=== PATIENT | female | born 1935 | race African-American/Black ===

== ENCOUNTER 2020-07-02 18:01 | Emergency (ER) | payer BC, MEDICARE ==
[~2020-07-02] VITALS: Ht 167.6 cm; Wt 68.0 kg
[2020-07-02] MEDS ORDERED: ONDANSETRON HCL 4MG/2ML INJ IV ONE ×2 (19:00→23:00)
[2020-07-02] MEDS ORDERED: LABETALOL 5MG/ML SYR 20 MG/4 ML SYRINGE IV ONE (19:45)
[2020-07-02 20:24] LABS: CLARITY URINE CLEAR (CLEAR); COLOR URINE YELLOW (YELLOW); KETONES URINE NEGATIVE (NEGATIVE); LEUKOCYTE ESTERASE URINE TRACE (NEGATIVE); NITRITE URINE NEGATIVE (NEGATIVE); OCCULT BLOOD URINE NEGATIVE (NEGATIVE); PH URINE 7.5 (4.5-8.0); PROTEIN URINE NEGATIVE (NEGATIVE); UROBILINOGEN URINE 0.2 E.U./dL (0.2-1.0)
[2020-07-02 20:32] LABS: HEMATOCRIT. 35.7 % (36.0-48.0); MEAN CORPUSCULAR HEMOGLOBIN 30.8 pg (28.0-32.0); MEAN CORPUSCULAR VOLUME 91.5 fL (81.0-99.0); MEAN PLATELET VOLUME 7.8 fl (7.4-10.4); PLATELET 286 x1000/uL (130-400); RED CELL DISTRIBUTION WIDTH 15.1 % (11.6-14.6)
[2020-07-02 20:37] LABS: CHLORIDE 95 mEq/L (98-107)
[2020-07-02] MEDS ORDERED: HYDRALAZINE 20MG/ML VIAL IV ONE (21:30)
[2020-07-02 21:58] LABS: PLATELET ESTIMATE NORMAL
[2020-07-02] MEDS ORDERED: POTASSIUM CHLORIDE 20MEQ TABLET SR PO ONE (22:15)
[2020-07-02] MEDS ORDERED: FENTANYL CITRATE/PF 50MCG/ML 2ML VIAL IV ONE (23:00)
[2020-07-03 02:00] VITALS: BP 127/62
== END 2020-07-03 02:41 | disposition short-term general hospital (02) ==
LOC: ER 18:01 → CANBEDREQ 07-03 05:54
DX: S00.12XA Contusion of left eyelid and periocular area, initial encounter (principal); S09.93XA Unspecified injury of face, initial encounter; R11.10 Vomiting, unspecified; I16.1 Hypertensive emergency; I10 Essential (primary) hypertension; R55 Syncope and collapse; E87.8 Other disorders of electrolyte and fluid balance, not elsewhere classified; W18.39XA Other fall on same level, initial encounter; Y93.89 Activity, other specified; Y92.89 Other specified places as the place of occurrence of the external cause; Y99.8 Other external cause status
CPT/HCPCS: 36415; 70450; 70486; 71045; 72125; 80053; 81003; 83690; 83880; 84484; 85025; 93005; 96374; 96375; 96376; 99291; J0360; J2405; J3010; J3490; 99285